=== PATIENT | male | born 1995 | race Caucasian/White ===

== ENCOUNTER 2019-09-17 12:00 | Emergency (ER) | payer OTHER ==
[~2019-09-17] VITALS: Ht 170.2 cm; Wt 77.1 kg
[~2019-09-17 12:00] MED LIST: ATIVAN1 MG PO; NORCO 5-325 TA1 EACH PO
== END 2019-09-17 14:13 | disposition home or self-care (01) ==
LOC: ED 12:00
DX: T67.8XXA Other effects of heat and light, initial encounter (principal); E86.0 Dehydration; F17.200 Nicotine dependence, unspecified, uncomplicated; X32.XXXA Exposure to sunlight, initial encounter
CPT/HCPCS: 80053; 82550; 85025; 96374; 99284-25; C9803; J1885; J7030; U0002